=== PATIENT | male | born 1970 | race Caucasian/White ===

== ENCOUNTER 2016-08-13 23:32 | Emergency (ER) | payer BC ==
[2016-08-13] MEDS ORDERED: Aspirin Low Dose CHEW TAB* 81 MG PO ONE (23:42)
[2016-08-14] MEDS ORDERED: NS 0.9% 1000 ML* 1,000 ML IV ONE (00:47)
[2016-08-14] MEDS ORDERED: Ondansetron INJ* 2 MG/ML VIAL IV ONE (00:47)
[2016-08-14] MEDS ORDERED: Ketorolac INJ* 30 MG/ML 1 ML VIAL IV ONE (00:47)
[2016-08-14 00:55] LABS: Urine Bilirubin Negative (Negative); Urine Glucose Negative (Negative); Urine Nitrite Negative (Negative)
[2016-08-14 00:57] LABS: Albumin 4.8 g/dL (3.2-5.2); BUN/Creatinine Ratio 16.8 (8-20); Calcium 9.5 mg/dL (8.6-10.3); EGFR Non-African American 66.1 (>60); Potassium 3.4 mmol/L (3.5-5.0); Total Bilirubin 0.7 mg/dL (0.2-1.0); Total Protein 7.8 g/dL (6.4-8.9)
[2016-08-14 01:05] LABS: Hematocrit 46 % (42-52); Hemoglobin 15.4 g/dl (14.0-18.0); Mean Corpuscular HGB Conc 34 g/dl (31-36); Mean Corpuscular Hemoglobin 31 pg (27-31); Mean Corpuscular Volume 91 fL (80-94); Mean Platelet Volume 8 um3 (7.4-10.4); Red Blood Count 5.05 10^6/ul (4.0-5.4); Red Cell Distribution Width 13 % (10.5-15); White Blood Count 6.7 10^3/ul (3.5-10.8)
--- NOTE | 2016-08-14 02:44 | ED ---
Sabine Brock Claudia, scribed for Aby Hernandez MD on 08/14/16 at 0052 . Complex/Multi-Sys Presentation - HPI Summary HPI Summary: 46 year old male presents to the ED with multi-Sx. Pt notes that for the past week he has been having urinary Sx including an increase in frequency with the inability to urinate. Pt saw his PCP Dr. Shane last Wednesday and was given Rx for Ciproflaxin with the thought that thue pt has a UTI. Pt then went back 1 week later with no alleviation in Sx and has taken 2 dosages of Bactrum from Dr. Shane. Pt then notes that tonight he had a heaviness in his chest which worsened from 8:30-pm to 10pm when he decided to come to ED. He notes SOB during this episode of CP. He notes that the CP has somewhat been alleviated since arriving at the ED. Pt notes that he has been having left flank pain radiating to his left testicle since the urinary Sx began. He notes that deep berths aggravated his CP. FHx of Kidney Stones. - History Of Current Complaint Chief Complaint: EDChestPainROMI Time Seen by Provider: 08/13/16 23:42 Hx Obtained From: Patient Onset/Duration: Sudden Onset, Lasting Days, Still Present Timing: Constant Associated Signs And Symptoms: Positive: Back Pain - flank pain, Dysuria - with increased frequency - Allergies/Home Medications Allergies/Adverse Reactions: Allergies Allergy/AdvReac Type Severity Reaction Status Date / Time No Known Allergies Allergy Verified 08/13/16 23:49 Home Medications: Home Medications Sulfamethox/Trimethoprim DS* [Bactrim DS 800/160 TAB*] 1 tab PO BID 08/13/16 [ History Confirmed 08/13/16] PMH/Surg Hx/FS Hx/Imm Hx Previously Healthy: Yes Endocrine/Hematology History: Denies: Hx Diabetes, Hx Thyroid Disease Cardiovascular History: Denies: Hx Angina, Hx Coronary Artery Disease, Hx Hypercholesterolemia, Hx Hypertension, Hx Myocardial Infarction, Hx Valvular Heart Disease Respiratory History: Reports: Hx Sleep Apnea, Other Respiratory Problems/ Disorders - SLEEP APNEA Denies: Hx Asthma, Hx Chronic Obstructive Pulmonary Disease (COPD) GI History: Reports: Hx Gastroesophageal Reflux Disease Denies: Hx Ulcer, Other GI Disorders Musculoskeletal History: Reports: Hx Back Problems Neurological History: Denies: Other Neuro Impairments/Disorders - Surgical History Surgery Procedure, Year, and Place: appe at age 8; wisdom teeth Hx Anesthesia Reactions: No - Immunization History Date of Tetanus Vaccine: unk Date of Influenza Vaccine: unk Infectious Disease History: No Infectious Disease History: Denies: Hx Clostridium Difficile, Hx Hepatitis, Hx Human Immunodeficiency Virus (HIV), Hx of Known/Suspected MRSA, Hx Shingles, Hx Tuberculosis, Hx Known/ Suspected VRE, Hx Known/Suspected VRSA, History Other Infectious Disease, Traveled Outside the [place] in Last 30 Days - Family History Family History: Kindpar[place] Stones - Social History Occupation: Employed Full-time Lives: With Family Alcohol Use: Daily Alcohol Amount: 2 beers/night Substance Use Type: Reports: None Hx Tobacco Use: Yes Smoking Status (MU): Former Smoker Type: Cigarettes Have You Smoked in the Last Year: No Review of Systems Constitutional: Negative Eyes: Negative ENT: Negative Positive: Chest Pain Positive: Shortness Of Breath Gastrointestinal: Negative Negative: Abdominal Pain Positive: dysuria, frequency, flank pain, urgency Musculoskeletal: Negative Skin: Negative Neurological: Negative Psychological: Normal All Other Systems Reviewed And Are Negative: Yes Physical Exam Triage Information Reviewed: Yes Vital Signs On Initial Exam: Initial Vitals Temp Pulse Resp BP Pulse Ox 98.2 F 94 20 157/76 100 08/13/16 23:34 08/13/16 23:34 08/13/16 23:34 08/13/16 23:34 08/13/16 23:34 Vital Signs Reviewed: Yes Appearance: Positive: Well-Appearing, No Pain Distress Skin: Positive: Warm, Skin Color Reflects Adequate Perfusion, Dry Eyes: Positive: EOMI, LALY Neck: Positive: Supple, Nontender Respiratory/Lung Sounds: Positive: Clear to Auscultation, Breath Sounds Present. Negative: Rales, Rhonchi, Wheezes Cardiovascular: Positive: RRR. Negative: Murmur, Leg Edema Left, Leg Edema Right Abdomen Description: Positive: Nontender, Soft, Other: - mild left flank pain. Negative: Distended, Guarding Musculoskeletal: Positive: Strength/ROM Intact Neurological: Positive: Sensory/Motor Intact, Alert, Oriented to Person Place, Time, CN Intact II-III Psychiatric: Positive: Affect/Mood Appropriate - William Coma Scale Coma Scale Total: 15 Diagnostics - Vital Signs Vital Signs Temp Pulse Resp BP Pulse Ox 08/14/16 00:15 80 13 133/97 98 08/14/16 00:01 86 17 133/85 97 08/14/16 00:00 82 11 97 08/13/16 23:53 20 08/13/16 23:52 146/86 08/13/16 23:45 99.2 F 86 14 146/86 99 08/13/16 23:34 98.2 F 94 20 157/76 100 - Laboratory Lab Results: Lab Results 08/14/16 08/14/16 08/14/16 Range/Units 00:10 00:10 00:10 WBC 6.7 (3.5-10.8) 10^3/ul RBC 5.05 (4.0-5.4) 10^6/ul Hgb 15.4 (14.0-18.0) g/dl Hct 46 (42-52) % MCV 91 (80-94) fL MCH 31 (27-31) pg MCHC 34 (31-36) g/dl RDW 13 (10.5-15) % Plt Count 212 (150-450) 10^3/ul MPV 8 (7.4-10.4) um3 Neut % (Auto) 72.7 (38-83) % Lymph % (Auto) 13.7 L (25-47) % [place] % (Auto) 9.6 H (1-9) % Eos % (Auto) 3.2 (0-6) % Baso % (Auto) 0.8 (0-2) % Absolute Neuts (auto) 4.9 (1.5-7.7) 10^3/ul Absolute Lymphs (auto) 0.9 L (1.0-4.8) 10^3/ul Absolute Monos (auto) 0.6 (0-0.8) 10^3/ul Absolute Eos (auto) 0.2 (0-0.6) 10^3/ul Absolute Basos (auto) 0.1 (0-0.2) 10^3/ul Absolute Nucleated RBC 0.01 10^3/ul Nucleated RBC % 0.1 Sodium 135 (133-145) mmol/L Potassium 3.4 L (3.5-5.0) mmol/L Chloride 102 (101-111) mmol/L Carbon Dioxide 22 (22-32) mmol/L Anion Gap 11 (2-11) mmol/L BUN 20 (6-24) mg/dL Creatinine 1.19 H (0.67-1.17) mg/dL Est GFR ( Amer) 85.0 (>60) Est GFR (Non-Af Amer) 66.1 (>60) BUN/Creatinine Ratio 16.8 (8-20) Glucose 88 (70-100) mg/dL Lactic Acid 1.0 (0.5-2.0) mmol/L Calcium 9.5 (8.6-10.3) mg/dL Total Bilirubin 0.70 (0.2-1.0) mg/dL AST 29 (13-39) U/L ALT 34 (7-52) U/L Alkaline Phosphatase 62 (34-104) U/L Troponin I 0.00 (<0.04) ng/mL Total Protein 7.8 (6.4-8.9) g/dL Albumin 4.8 (3.2-5.2) g/dL Globulin 3.0 (2-4) g/dL Albumin/Globulin Ratio 1.6 (1-3) Urine Color Urine Appearance Urine pH (5-9) Ur Specific [place] (1.010-1.030) Urine Protein (Negative) Urine Ketones (Negative) Urine Blood (Negative) Urine Nitrate (Negative) Urine Bilirubin (Negative) Urine Urobilinogen (Negative) Ur Leukocyte Esterase (Negative) Urine Glucose (Negative) 08/14/16 Range/Units 00:10 WBC (3.5-10.8) 10^3/ul RBC (4.0-5.4) 10^6/ul Hgb (14.0-18.0) g/dl Hct (42-52) % MCV (80-94) fL MCH (27-31) pg MCHC (31-36) g/dl RDW (10.5-15) % Plt Count (150-450) 10^3/ul MPV (7.4-10.4) um3 Neut % (Auto) (38-83) % Lymph % (Auto) (25-47) % [place] % (Auto) (1-9) % Eos % (Auto) (0-6) % Baso % (Auto) (0-2) % Absolute Neuts (auto) (1.5-7.7) 10^3/ul Absolute Lymphs (auto) (1.0-4.8) 10^3/ul Absolute Monos (auto) (0-0.8) 10^3/ul Absolute Eos (auto) (0-0.6) 10^3/ul Absolute Basos (auto) (0-0.2) 10^3/ul Absolute Nucleated RBC 10^3/ul Nucleated RBC % Sodium (133-145) mmol/L Potassium (3.5-5.0) mmol/L Chloride (101-111) mmol/L Carbon Dioxide (22-32) mmol/L Anion Gap (2-11) mmol/L BUN (6-24) mg/dL Creatinine (0.67-1.17) mg/dL Est GFR ( Amer) (>60) Est GFR (Non-Af Amer) (>60) BUN/Creatinine Ratio (8-20) Glucose (70-100) mg/dL Lactic Acid (0.5-2.0) mmol/L Calcium (8.6-10.3) mg/dL Total Bilirubin (0.2-1.0) mg/dL AST (13-39) U/L ALT (7-52) U/L Alkaline Phosphatase (34-104) U/L Troponin I (<0.04) ng/mL Total Protein (6.4-8.9) g/dL Albumin (3.2-5.2) g/dL Globulin (2-4) g/dL Albumin/Globulin Ratio (1-3) Urine Color Straw Urine Appearance Clear Urine pH 5.0 (5-9) Ur Specific [place] 1.011 (1.010-1.030) Urine Protein Negative (Negative) Urine Ketones 1+ H (Negative) Urine Blood Negative (Negative) Urine Nitrate Negative (Negative) Urine Bilirubin Negative (Negative) Urine Urobilinogen Negative (Negative) Ur Leukocyte Esterase Negative (Negative) Urine Glucose Negative (Negative) Result Diagrams: 08/14/16 00:10 08/14/16 00:10 Lab Statement: Any lab studies that have been ordered have been reviewed, and results considered in the medical decision making process. - Radiology CXR Xray Interpretation: No Acute Changes Radiology Interpretation Completed By: ED Physician - CT ABD/PELVIS CT Interpretation: No Acute Changes - NO LOCALIZING SIGNS FOR ACUTE PATHOLOGY CT Interpretation Completed By: Radiologist LUMBAR SPINE CT CT Interpretation: No Acute Changes - NO EVIDENCE OF ACUTE OR SIGNIFICANT PATHOLOGY CT Interpretation Completed By: Radiologist - EKG 2344 Cardiac Rate: NL EKG Rhythm: Sinus Rhythm - 77 BEATS/MIN ST Segment: Normal Complex Multi-Symp Course/Dx Course Of Treatment: 46 yo male with multiple complaints, he is seeing urology today for a presumed prostatititis and here has a normal urine, normal wbc and a neg ct for stones. ct lumbar spine does not show anything alarming, he does not have any signs of cauda equina. As for cp his first trop is negative, he understands that in order to fully determine that he has not had a heart attack a troponin would have to be drawn 6 hours after his worst pain (1030pm) and this would be at 430 am. He is willing to take the risk of a missed heart attack and but has agreed to getting a troponin now which is 3 hours from the first. If this is negative he will go home. no testicular swelling, normal dtr's normal great toe raise - Diagnoses Provider Diagnoses: Chest pain, Prostatitis Discharge - Discharge Plan Condition: Stable Disposition: HOME The documentation as recorded by the Sabine knowles Claudia accurately reflects the service I personally performed and the decisions made by me, Aby Hernandez MD.
[2016-08-14 03:16] VITALS: BP 128/83
--- NOTE | 2016-08-14 07:59 | RAD ---
INDICATION: Chest pain COMPARISON: Chest x-ray dated January 05, 2013 TECHNIQUE: Single AP portable view of the chest was obtained. FINDINGS: Image quality is compromised due to the relative inferiority of a portable chest x-ray. The heart and mediastinum exhibit normal size and contour. The lungs are grossly clear. There is no evidence of a large pleural effusion. Visualized bones are normal for the patient's age. IMPRESSION: No radiographic evidence for acute cardiopulmonary abnormality on this portable chest x-ray.
--- NOTE | 2016-08-14 08:09 | RAD ---
CLINICAL HISTORY: Low back and left flank pain. Relevant surgical history includes an appendectomy. COMPARISON: None TECHNIQUE: Noncontrast CT examination of the abdomen and pelvis from the lung bases through the initial tuberosities. FINDINGS: VISUALIZED LUNG BASES: The visualized lung bases are grossly clear. There is no pleural effusion. ABDOMEN AND PELVIS: Evaluation of the solid organs and vasculature is limited without intravenous contrast. The liver, spleen, pancreas and adrenal glands are grossly normal in appearance. The gallbladder is normal. The kidneys are normal in appearance without focal mass, calcification or signs of hydronephrosis. The small and large bowel are not distended. The appendix is not visualized in keeping with the surgical history. There are scattered rectosigmoid diverticula but none exhibit focal inflammatory change. There is no gross retroperitoneal or mesenteric lymphadenopathy. The pelvic viscera is normal in appearance. There is a small fat-containing left-sided inguinal hernia. The abdominal aorta and iliac arteries are normal in course and diameter. Degenerative changes of the lumbar spine include mild loss of intervertebral disc height involving the lower thoracic and lumbar spine. There are anterior marginal osteophytes along the lower thoracic spine. Mild broad-based disc protrusion is seen at the lower lumbar spine that does not appear to cause any significant central canal or neural foraminal stenoses.There are no sinister bone lesions. IMPRESSION: 1. Mild degenerative changes of the lower thoracic and lumbar spine as well as can be determined and evaluated on a noncontrast CT examination. If clinically warranted superior characterization of the neurologic and surrounding soft tissues of the lumbar spine can be made with MRI. 2. Additional chronic and degenerative changes as described in body the report.
== END 2016-08-14 03:24 | disposition home or self-care (01) ==
LOC: ED 23:32
DX: R07.9 Chest pain, unspecified (principal); N41.9 Inflammatory disease of prostate, unspecified; M54.9 Dorsalgia, unspecified; R30.0 Dysuria
CPT/HCPCS: 36415; 71010; 72131; 74176; 80053; 81003; 83605; 84484; 85025; 93005; 96374; 99283; A9270-GY; J1885; J2405

== ENCOUNTER 2017-03-12 20:56 | Emergency (ER) | payer BC ==
--- NOTE | 2017-03-12 21:02 | UC ---
Throat Pain/Nasal Ben HPI - HPI Summary HPI Summary: Pt ate a ham and cheese sandwich at about 1800 tonight. When swallowing a bite, he felt a "pop" in the anterior aspect of his throat and has had significant pain with swallowing since. He is able to tolerate liquids, but with pain. He also reports that he feels his swallowing has been getting more difficult over the course of this week. Denies SOB, food allergies, recent illness, or sore throat before tonight. - History of Current Complaint Chief Complaint: UCGeneralIllness Stated Complaint: THROAT COMPLAINT Time Seen by Provider: 03/12/17 21:02 Hx Obtained From: Patient Onset/Duration: Sudden Onset Severity: Severe Pain Intensity: 8 Pain Scale Used: 0-10 Numeric Associated Signs & Symptoms: Positive: Dysphagia, FB Sensation - Allergies/Home Medications Allergies/Adverse Reactions: Allergies Allergy/AdvReac Type Severity Reaction Status Date / Time No Known Allergies Allergy Verified 03/12/17 20:58 Home Medications: Home Medications NK [No Home Medications Reported] 03/12/17 [History Confirmed 03/12/17] PMH/Surg Hx/FS Hx/Imm Hx Previously Healthy: Yes - Surgical History Surgical History: Yes Surgery Procedure, Year, and Place: appe at age 8; wisdom teeth - Family History Family History: Kindey Stones - Social History Alcohol Use: Daily Alcohol Amount: 2 beers/night Substance Use Type: None Smoking Status (MU): Former Smoker Type: Cigarettes Have You Smoked in the Last Year: No When Did the Patient Quit Smoking/Using Tobacco: 2010 - Immunization History Most Recent Influenza Vaccination: never Most Recent Tetanus Shot: 2007 Review of Systems Constitutional: Negative Skin: Negative ENT: Ear Ache, Other - Throat pain Respiratory: Negative Cardiovascular: Negative Gastrointestinal: Negative Is Patient Immunocompromised?: No All Other Systems Reviewed And Are Negative: Yes Physical Exam Triage Information Reviewed: Yes Appearance: Other: - Appears anxious. NAD. Vital Signs Reviewed: Yes ENT: Positive: Hearing grossly normal, Pharyngeal erythema, TMs normal. Negative: Nasal congestion, Nasal drainage, TM bulging, TM dull, TM red, Tonsillar swelling, Tonsillar exudate, Trismus, Muffled/hoarse voice Neck exam: Normal Neck: Positive: Supple, No Lymphadenopathy, Tenderness @ - anterior aspect just superior to cricoid Respiratory: Positive: Chest non-tender, Lungs clear, Normal breath sounds, No respiratory distress Cardiovascular: Positive: RRR, No Murmur Neurological: Positive: Alert Psychological: Positive: Age Appropriate Behavior, Other: - Anxious Skin: Negative: rashes, significant lesion(s) Throat Pain/Nasal Course/Dx - Course Course Of Treatment: Pt was presented to Dr. Maya and a ddx and potential tx options were discussed. Could possibly have a FB situated about the epiglottis requiring advanced imaging or an endoscopic procedure. Advised to send to ED for further eval Assessment/Plan: Pt was presented to Dr. Maya and a ddx and potential tx options were discussed. Could possibly have a FB situated about the epiglottis requiring advanced imaging or an endoscopic procedure. Advised to send to ED for further eval - Differential Dx/Diagnosis Differential Diagnosis/HQI/PQRI: Epiglottitis, Foreign Body, Pharyngitis, Tonsillitis Provider Diagnoses: Foreign Body in laryngopharynx - Physician Notification/Consults Discussed Patient Care With: Cr Maya Time Discussed With Above Provider: 21:30 Discharge - Discharge Plan Condition: Stable Disposition: OTHER Discharge Disposition Comment: By private car to [facility] Referrals: Cornell Belcher MD [Primary Care Provider] - Additional Instructions: Possible foreign body stuck in airway/esophagus. If you develop SOB, trouble breathing, or worsening pain - call 911.
[2017-03-12 21:04] VITALS: BP 158/94
== END 2017-03-12 21:25 ==
LOC: UCEAST 20:56
DX: T17.208A Unspecified foreign body in pharynx causing other injury, initial encounter (principal); X58.XXXA Exposure to other specified factors, initial encounter; Y93.9 Activity, unspecified; Y92.9 Unspecified place or not applicable; Z87.891 Personal history of nicotine dependence
CPT/HCPCS: 99211; G0463

== ENCOUNTER 2017-03-12 21:45 | Emergency (ER) | payer BC ==
[2017-03-12 23:22] VITALS: BP 139/75
[2017-03-13] MEDS ORDERED: Lidocaine 2% VISCOUS* 15 ML UDC SWISH SPIT ONE (00:40)
[2017-03-13] MEDS ORDERED: Pantoprazole TAB (NF) 40 MG TAB PO ONE (00:40)
--- NOTE | 2017-03-13 01:45 | ED ---
Ab Brock Abhishek, scribed for Curtis Umana on 03/13/17 at 0040 . Throat Pain/Nasal Congestion - HPI Summary HPI Summary: This patient is a 46 year old M presenting to [facility] with a chief complaint of throat pain today. Pt was eating food and heard a snap, like a rubber band snap in his throat. The CC is described as sudden. The patient rates the pain 2/10 in severity. Symptoms aggravated by sneezing. Symptoms alleviated by nothing. - History of Current Complaint Chief Complaint: EDThroatPain Time Seen by Provider: 03/13/17 00:30 Hx Obtained From: Patient Onset/Duration: Sudden Onset Severity: Mild - Allergies/Home Medications Allergies/Adverse Reactions: Allergies Allergy/AdvReac Type Severity Reaction Status Date / Time No Known Allergies Allergy Verified 03/12/17 20:58 PMH/Surg Hx/FS Hx/Imm Hx Endocrine/Hematology History: Denies: Hx Diabetes, Hx Thyroid Disease Cardiovascular History: Denies: Hx Angina, Hx Coronary Artery Disease, Hx Hypercholesterolemia, Hx Hypertension, Hx Myocardial Infarction, Hx Valvular Heart Disease Respiratory History: Reports: Hx Sleep Apnea, Other Respiratory Problems/ Disorders - SLEEP APNEA Denies: Hx Asthma, Hx Chronic Obstructive Pulmonary Disease (COPD) GI History: Reports: Hx Gastroesophageal Reflux Disease Denies: Hx Ulcer, Other GI Disorders Musculoskeletal History: Reports: Hx Back Problems, Other Musculoskeletal History - Myalgia Neurological History: Denies: Other Neuro Impairments/Disorders - Surgical History Surgery Procedure, Year, and Place: appe at age 8; wisdom teeth Hx Anesthesia Reactions: No - Immunization History Date of Tetanus Vaccine: unk Date of Influenza Vaccine: unk Infectious Disease History: No Infectious Disease History: Denies: Hx Clostridium Difficile, Hx Hepatitis, Hx Human Immunodeficiency Virus (HIV), Hx of Known/Suspected MRSA, Hx Shingles, Hx Tuberculosis, Hx Known/ Suspected VRE, Hx Known/Suspected VRSA, History Other Infectious Disease, Traveled Outside the [place] in Last 30 Days - Family History Known Family History: Positive: None Family History: Kindey Stones - Social History Occupation: Employed Full-time Alcohol Use: Daily Alcohol Amount: 2 beers/night Substance Use Type: Reports: None Hx Tobacco Use: Yes Smoking Status (MU): Former Smoker Type: Cigarettes Have You Smoked in the Last Year: No Review of Systems Constitutional: Negative Eyes: Negative Positive: Ear Ache, Other - throat pain s/p eating food and dysphagia Cardiovascular: Negative Respiratory: Negative Gastrointestinal: Negative Genitourinary: Negative Musculoskeletal: Negative Skin: Negative Neurological: Negative Psychological: Normal All Other Systems Reviewed And Are Negative: Yes Physical Exam - Summary Physical Exam Summary: Appearance: Well appearing, no pain distress Skin: warm, dry, reflects adequate perfusion Head/face: normal Eyes: EOMI, LALY ENT: normal Neck: supple, nontender Respiratory: CTA, breath sounds present Cardiovascular: RRR, pulses symmetrical Abdomen: nontender, soft Bowel: present Musculoskeletal: normal, strength/ROM intact Neuro: normal, sensory motor intact, A&Ox3 Triage Information Reviewed: Yes Vital Signs On Initial Exam: Initial Vitals Temp Pulse Resp BP Pulse Ox 97.8 F 77 14 156/90 97 03/12/17 21:55 03/12/17 21:55 03/12/17 21:55 03/12/17 21:55 03/12/17 21:55 Vital Signs Reviewed: Yes - William Coma Scale Coma Scale Total: 15 Diagnostics - Vital Signs Vital Signs Temp Pulse Resp BP Pulse Ox 03/12/17 23:21 97.9 F 67 14 139/75 97 03/12/17 21:55 97.8 F 77 14 156/90 97 - Laboratory Lab Statement: Any lab studies that have been ordered have been reviewed, and results considered in the medical decision making process. - Radiology Chest X-ray Radiology Interpretation Completed By: Radiologist - Chest X-ray is negative EENT Course/Dx - Course Course Of Treatment: This patient is a 46 year old M presenting to [facility] with a chief complaint of throat pain today. Patient reports troubling swallowing food for a few days, and ear pain. CXR is negative. Pt is dx with Throat pain with foreign body ingestion and is with no dysphagia, Pt is able to drink water. Patient will be (discharged) with follow up from PCP. Pt is agreeable with this plan. - Differential Diagnoses Differential Diagnoses: Foreign Body - Diagnoses Provider Diagnoses: Throat pain Discharge - Discharge Plan Condition: Stable Disposition: HOME Prescriptions: Lidocaine 2% VISCOUS* [Xylocaine 2% Viscous*] 15 ml SWISH SPIT Q6H PRN #1 btl MDD 3 PRN Reason: Pain Pantoprazole TAB (NF) [Protonix TAB (NF)] 40 mg PO DAILY #30 tab Patient Education Materials: Foreign Body Ingestion (ED) Referrals: Cornell Belcher MD [Primary Care Provider] - (Follow up with PCP within 3 days) Additional Instructions: No dysphagia The documentation as recorded by the Ab knowles Abhishek accurately reflects the service I personally performed and the decisions made by Lyndsay lucas Emmanuel.
--- NOTE | 2017-03-13 07:54 | RAD ---
HISTORY: Throat pain COMPARISONS: August 13, 2016 VIEWS: 4: Frontal dual-energy and lateral views of the chest. FINDINGS: CARDIOMEDIASTINAL SILHOUETTE: The cardiomediastinal silhouette is normal. NAMRATA: The namrata are normal. PLEURA: The costophrenic angles are sharp. No pleural abnormalities are noted. LUNG PARENCHYMA: The lungs are clear. ABDOMEN: The upper abdomen is clear. There is no subphrenic gas. BONES AND SOFT TISSUES: No bone or soft tissue abnormalities are noted. OTHER: None. IMPRESSION: NO ACTIVE CARDIOPULMONARY DISEASE.
== END 2017-03-13 01:33 | disposition home or self-care (01) ==
LOC: ED 21:45
DX: J02.9 Acute pharyngitis, unspecified (principal); H92.09 Otalgia, unspecified ear; R13.10 Dysphagia, unspecified; Z87.891 Personal history of nicotine dependence
CPT/HCPCS: 71020; 99282; A9270-GY

== ENCOUNTER 2017-04-17 09:41 | Emergency (ER) | payer BC ==
--- NOTE | 2017-04-17 09:54 | UC ---
Eye Complaint HPI - HPI Summary HPI Summary: 46 y/o female presents to the urgent care c/o Rt eye foreign body since 04/15/2017 while watching TV. He flushed his eye with water and his eye clear. However yesterday night he felt the same irritation and now it is bothering him a lot. Symptoms have worsen since last night.Pt denies, fever, photophobia, eye pain, decrease vision, eye discharge, MILIAN, N/V/D - History of Current Complaint Chief Complaint: UCEye Stated Complaint: EYE COMPLAINT Time Seen by Provider: 04/17/17 09:53 Hx Obtained From: Patient Onset/Duration: Gradual Onset, Lasting Days - 2 days, Still Present, Worse Since - yesterday Timing: Constant Severity Initially: Mild Severity Currently: Mild Pain Intensity: 0 Pain Scale Used: 0-10 Numeric Location of Injury: Globe - foreign body sensation Character: Foreign Body Sensation Aggravating Factor(s): Blinking Alleviating Factor(s): Nothing Associated Signs And Symptoms: Positive: Drainage (Clear). Negative: Photophobia, Drainage (Purulent), Swelling - Risk Factors Penetrating Injury Risk Factor: Negative Globe Rupture Risk Factors: Negative Acute Glaucoma Risk Factors: Negative Optic Artery Occlusion Risk Factors: Negative - Allergies/Home Medications Allergies/Adverse Reactions: Allergies Allergy/AdvReac Type Severity Reaction Status Date / Time No Known Allergies Allergy Verified 04/17/17 09:58 Home Medications: Home Medications Omeprazole CAP* [Prilosec CAP* 20 MG] 1 cap PO DAILY 04/17/17 [History Confirmed 04/17/17] PMH/Surg Hx/FS Hx/Imm Hx Previously Healthy: Yes - Pt denies PMHX - Surgical History Surgical History: Yes Surgery Procedure, Year, and Place: appe at age 8; wisdom teeth - Family History Known Family History: Positive: Diabetes Family History: Kindey Stones - Social History Occupation: Employed Full-time Lives: With Family Alcohol Use: Daily Alcohol Amount: 2 beers/night Substance Use Type: None Smoking Status (MU): Former Smoker Type: Cigarettes Have You Smoked in the Last Year: No When Did the Patient Quit Smoking/Using Tobacco: 2010 - Immunization History Most Recent Influenza Vaccination: never Most Recent Tetanus Shot: 2007 Review of Systems Constitutional: Negative Skin: Negative Eyes: Other - RT eye foreign body ENT: Negative Respiratory: Negative Cardiovascular: Negative Gastrointestinal: Negative Genitourinary: Negative Motor: Negative Neurovascular: Negative Musculoskeletal: Negative Neurological: Negative Psychological: Negative Is Patient Immunocompromised?: No All Other Systems Reviewed And Are Negative: Yes Physical Exam Triage Information Reviewed: Yes - Additional Comments Vital Signs Reviewed: Yes General: Well appearing, well nourished male in no apparent pain distress Eyes: B/L conjunctivae clears, Visual acuity: WNL,Visual [place]: full to confrontation, no tenderness to palpation, PERRLA, EOMI intact w/out limitation or complaint of pain. eyelashes clear. mild tearing from Rt eye. No ciliary flush. No chemosis, No photophobia. Normal fundoscopic exam; no proptosis, exophthalmos, nystagmus. Trnasparent fiber around 11 o'clock observed with naked eye, However unable to removed with Q-tip since Pt's unable to open eye for removal. ENT: Positive: Normal ENT inspection, Hearing grossly normal, Pharynx normal, Nasal congestion, Nasal drainage - clear, TMs normal - B/L external ear canal clear , TM's WNL. Negative: Tonsillar swelling, Tonsillar exudate Neck: Positive: Supple, Nontender, No Lymphadenopathy Respiratory: Positive: Chest nontender, Lungs clear, Normal breath sounds, No respiratory distress Cardiovascular: Positive: RRR, No Murmur, Pulses Normal, Brisk Capillary Refill Abdomen Description: Positive: Nontender, No Organomegaly, Soft. Negative: CVA Tenderness (R), CVA Tenderness (L) Bowel Sounds: Positive: Present Musculoskeletal: Positive: Strength Intact, ROM Intact, No Edema Neurological Exam: Normal Psychological Exam: Normal Skin Exam: Normal Eye Complaint Course/Dx - Course Course Of Treatment: 46 y/o female presents to the urgent care c/o Rt eye foreign body since 04/15/2017 while watching TV. He flushed his eye with water and his eye clear. However yesterday night he felt the same irritation and now it is bothering him a lot. Symptoms have worsen since last night.Pt denies fever, photophobia, eye pain, decrease vision, eye discharge, MILIAN , N/V/D. Hx obtained. Pt with a transparent fiber on examination. Unable to remove FB with Q-tip. Pt very sensitive. Eye irrigated wtih BSS opthalmic. Topical anesthetic was instilled with good anesthesia using 1 gtt of ophth anesthetic Tetracaine. Fluorescein stain of the R eye was performed w/ uptake of dye. No epithelial defect was noted, no corneal abrassion seen. FB removed. Upper lid was everted and no FB or lesions were noted. Slit lamp exam was performed. Anterior chamber is clear w/out cells or flare. Normal saline irrigation again and eye wash solutions was performed and the pt tolerated the procedure well, no adverse reaction or complication. Pt felt better. BP elevated Today, Pt advised to decrease salt in his diet,monitor BP and f/u with PCP if it continues to be elevated. Pt Rx Bacitacin opth oint to lubricate eye. D/instruction explained. pt understood and agreed with plan of care. - Differential Dx/Diagnosis Differential Diagnosis/HQI/PQRI: Conjunctivitis, Corneal Abrasion, Foreign Body , Keratitis, Periorbital Cellulitis, Orbital Cellulitis, Uveitis Provider Diagnoses: 1- RT eye foreing body. 2- elevated BP w/o Hx of HTN Discharge - Discharge Plan Condition: Stable Disposition: HOME Patient Education Materials: Eye Foreign Body (ED), Low Sodium Diet (ED) Referrals: Cornell Belcher MD [Primary Care Provider] - 1 Day Yonas Dillard MD [Medical Doctor] - If Needed Additional Instructions: 1-Please apply ophthalmic ointment as instructed and finish the full course of treatment to avoid recurrent infection. 2-If you do not improve or if symptoms worsen please f/u with strike operations officer Dr Dillard for further evaluation and treatment 3- Your BP is elevated today, please decrease salt in your diet, monitor your BP and if it continues to be elevated please f/u with your PCP for further management
[2017-04-17 09:58] VITALS: BP 149/80
[2017-04-17] MEDS ORDERED: Tetracaine 0.5% OPTH.SOL 4 ML* 1 DROP BTL RIGHT EYE ONE (10:12)
[2017-04-17] MEDS ORDERED: Fluorescein Sodium TOPICAL* 1 MG TEST OPHTHALMIC ONE (10:13)
[2017-04-17] MEDS ORDERED: BSS OPTH.SOL* BTL ONE (10:21)
[2017-04-17] MEDS ORDERED: BSS OPTH.SOL* BTL OPHTHALMIC ONE (10:42)
== END 2017-04-17 10:54 | disposition home or self-care (01) ==
LOC: UCEAST 09:41
DX: T15.91XA Foreign body on external eye, part unspecified, right eye, initial encounter (principal); S00.251A Superficial foreign body of right eyelid and periocular area, initial encounter; Z87.891 Personal history of nicotine dependence
CPT/HCPCS: 99213; A9270-GY; G0463

== ENCOUNTER 2019-03-11 11:25 | Emergency (ER) | payer BC ==
--- OUTSIDE RECORDS SUMMARY | 2019-03-11 11:38 | XMS REPORT | Continuity of Care Document ---
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 Problems Active Problems Provider Date Esophageal web Alesia Romano NP Onset: 02/28/2019 Note: faint web on EGD, no dilation done 09/23/2017 Gastro-esophageal reflux disease with esophagitis Alesia Romano NP Onset: Social History Type Date Description Comments Sex Unknown Tobacco Use Start: Unknown End: Former Cigarette Unknown Smoker Smoking Status Reviewed: 02/28/19 Former Cigarette Smoker ETOH Use Currently consumes 2 beers per day alcohol Tobacco Use Start: Unknown End: Patient is a former Unknown smoker Recreational Drug Use Denies Drug Use Exercise Type/Frequency 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 Allergies, Adverse Reactions, Alerts Description No Known Drug Allergies Medications Active Medications SIG Qnty Indications Ordering Provider Date Dexilant 1 by mouth 30caps Alesia Romano NP 02/28/[address] every day Sudafed Decongestant Alesia Romano NP 02/28/2019 History Medications No Active Medications Unknown 02/28/2019 - 02/28/2019 Immunizations Description No Information Available Vital Signs Date Vital Result Comment 02/28/2019 3:05pm Height 67.75 inches 5'7.75" Weight 196.00 lb Heart Rate 86 /min BP Systolic 149 mmHg BP Diastolic 84 mmHg O2 % BldC Oximetry 97 % BMI (Body Mass Index) 30.0 kg/m2 10/07/2016 1:35pm Height 67.75 inches 5'7.75" Weight 181.00 lb Heart Rate 68 /min BP Systolic 130 mmHg BP Diastolic 80 mmHg Respiratory Rate 20 /min Pain Level 1 BMI (Body Mass Index) 27.7 kg/m2 Results Description No Information Available Procedures Description No Information Available Medical Devices Description No Information Available Encounters Description No Information Available Assessments Date Code Description Provider 02/28/2019 K21.0 Gastro-esophageal reflux disease with esophagitis Alesia Romano NP 02/28/2019 H65.119 Acute and subacute allergic otitis media (mucoid) Alesia Romano NP (sanguinous) (serous), unspecified ear 02/28/2019 Q39.4 Esophageal web Alesia Romano NP Plan of Treatment 02/28/2019 - Alesia Romano NPK21.0 Gastro-esophageal reflux disease with esophagitisComments:Try the suggestions we talked about. [place] Pot for nasal irrigation.Let me know if the Dexilant works. Thank you for using [employer] [facility].H65.119 Acute and subacute allergic otitis media (serous), unsp earComments: Try the suggestions we talked about. [place] Pot for nasal irrigation.Let me know if the Dexilant works. Thank you for using [employer] [facility].Q39.4 Esophageal webComments:Try the suggestions we talked about. [place] Pot for nasal irrigation.Let me know if the Dexilant works. Thank you for using [employer] [facility]. Functional Status Description No Information Available Mental Status Description No Information Available Referrals Description No Information Available
[2019-03-11 12:26] VITALS: BP 148/91
--- NOTE | 2019-03-11 13:34 | UC ---
Throat Pain/Nasal Ben HPI - HPI Summary HPI Summary: Pt presents with c/o ST X 1 week and pain and difficulty with swallowing. Pt states that the pain is "lower in his throat" Pt does report that he has eaten fish with bones and has grilled recently and uses metal brush on grill. - History of Current Complaint Chief Complaint: UCRespiratory Stated Complaint: THROAT COMPLAINT Time Seen by Provider: 03/11/19 13:12 Hx Obtained From: Patient Onset/Duration: Gradual Onset, Lasting Days - 7, Still Present Severity: Mild Pain Intensity: 4 Cough: None Associated Signs & Symptoms: Positive: Dysphagia - Epiglottits Risk Factors Epiglottis Risk Factors: Sudden Onset - Allergies/Home Medications Allergies/Adverse Reactions: Allergies Allergy/AdvReac Type Severity Reaction Status Date / Time No Known Allergies Allergy Verified 03/11/19 12:16 Home Medications: Home Medications Dexlansoprazole [Dexilant] 1 tab DAILY 03/11/19 [History Confirmed 03/11/19] PMH/Surg Hx/FS Hx/Imm Hx Previously Healthy: Yes - Surgical History Surgical History: Yes Surgery Procedure, Year, and Place: appy at age 8; wisdom teeth - Family History Known Family History: Positive: Diabetes Family History: Kindey Stones - Social History Occupation: Employed Full-time Lives: With Family Alcohol Use: Daily Alcohol Amount: 2 beers/night Substance Use Type: None Smoking Status (MU): Former Smoker Type: Cigarettes Have You Smoked in the Last Year: No When Did the Patient Quit Smoking/Using Tobacco: 2010 - Immunization History Most Recent Influenza Vaccination: never Most Recent Tetanus Shot: utd w/in the last 4 years Vaccination Up to Date: Yes Review of Systems All Other Systems Reviewed And Are Negative: Yes Constitutional: Positive: Fatigue Skin: Positive: Negative Eyes: Positive: Negative ENT: Positive: Sore Throat Respiratory: Positive: Negative Cardiovascular: Positive: Negative Gastrointestinal: Positive: Negative Genitourinary: Positive: Negative Motor: Positive: Negative Neurovascular: Positive: Negative Musculoskeletal: Positive: Negative Neurological: Positive: Negative Psychological: Positive: Negative Is Patient Immunocompromised?: No Physical Exam Triage Information Reviewed: Yes Appearance: Pain Distress - with swallowing Vital Signs: Initial Vital Signs Temp 97.7 F 03/11/19 12:18 Pulse 67 03/11/19 12:18 Resp 16 03/11/19 12:18 BP 148/91 03/11/19 12:18 Pulse Ox 99 03/11/19 12:18 Vital Signs Reviewed: Yes Eye Exam: Normal ENT Exam: Normal ENT: Positive: Normal ENT inspection Dental Exam: Normal Neck exam: Normal Respiratory Exam: Normal Cardiovascular Exam: Normal Musculoskeletal Exam: Normal Neurological Exam: Normal Psychological Exam: Normal Skin Exam: Normal Diagnostics - Radiology No standard instances Radiology Interpretation Completed By: Radiologist - Strategic Development Manager: Ollie Warren F, ([id number]) Blast Furnace Supervisor: PATRICIA (NUANCE) Report Date: 12:09:00 Report Status: Final Start of Report Content = Patient Name: MARTA MELO Medical Record#: [id number] Ordering Physician: Liana Arango BILLING SERVICES MANAGER Acct.#: [id number] : 10/14/1992 Age: 26 Sex: M Location: [facility] Exam Date: 03/11/19 1209 ADM Status: REG ER Order Information: RIBS LT UNI W/PA CH MIN 3 VWS Accession Number: [id number] CPT: 76804 INDICATION: Left rib injury. COMPARISON: There are no relevant prior studies available for comparison. TECHNIQUE: 3 views of the left ribs and dual- energy PA views of the chest were obtained. FINDINGS: There are nondisplaced fractures of the left lateral eighth and ninth ribs. The heart is within normal limits in size. The lungs are clear. There is no evidence for pneumothorax or pleural effusion. IMPRESSION: NONDISPLACED FRACTURES OF THE LEFT LATERAL EIGHTH AND NINTH RIBS. < Electronically signed by Ollie Warren MD in OV> 03/11/191247 Dictated By: Ollie Warren MD Dictated Date/Time: 03/11/191244 Transcribed Date/Time: 1244 Copy to: CC:Liana Arango BILLING SERVICES MANAGER; Jane Hung MD; No Primary Care Phys,NOPCP Imaging - [facility] Imaging - [facility] Imaging - [facility] [address] [address] ph ([phone]) ph [phone]) ph ([phone]) End of Report Content Throat Pain/Nasal Course/Dx - Course Course Of Treatment: I discussed with the pt the need to follow up with his PCP and possibly an ENT provider due to patient c/o of persistent throat pain and difficulty swallowing. I discussed the results of the xray interpretation and reasoning why I prescribed antibiotics. Pt verbalized understanding and agreed to plan of care. - Differential Dx/Diagnosis Differential Diagnosis/HQI/PQRI: Pharyngitis, Tonsillitis Provider Diagnosis: Throat pain in adult Discharge ED - Sign-Out/Discharge Documenting (check all that apply): Patient Departure All imaging exams completed and their final reports reviewed: Yes - Discharge Plan Condition: Stable Disposition: HOME Prescriptions: Amoxicillin PO (*) [Amoxicillin 500 MG CAP*] 500 mg PO Q12H #20 cap Patient Education Materials: Pharyngitis (ED) Referrals: Kenyon Vazqeuz DO [Primary Care Provider] - If Needed Mode Baires MD [Medical Doctor] - If Needed Additional Instructions: Please follow up with your PCP and an ENT specialist if needed. If your symptoms do not improve or they worsen, please seek care at the closest emergency room. - Billing Disposition and Condition Condition: STABLE Disposition: Home
--- NOTE | 2019-03-16 11:01 | UC ---
Throat Pain/Nasal Ben HPI - HPI Summary HPI Summary: Pt presents with c/o ST X 1 week and pain and difficulty with swallowing. Pt states that the pain is "lower in his throat" Pt does report that he has eaten fish with bones and has grilled recently and uses metal brush on grill. - History of Current Complaint Chief Complaint: UCRespiratory Stated Complaint: THROAT COMPLAINT Time Seen by Provider: 03/11/19 13:12 Hx Obtained From: Patient Onset/Duration: Gradual Onset, Lasting Days - 7, Still Present Severity: Mild Pain Intensity: 4 Pain Scale Used: 0-10 Numeric Cough: None Associated Signs & Symptoms: Positive: Dysphagia - Epiglottits Risk Factors Epiglottis Risk Factors: Sudden Onset - Allergies/Home Medications Allergies/Adverse Reactions: Allergies Allergy/AdvReac Type Severity Reaction Status Date / Time No Known Allergies Allergy Verified 03/11/19 12:16 Home Medications: Home Medications Dexlansoprazole [Dexilant] 1 tab DAILY 03/11/19 [History Confirmed 03/11/19] PMH/Surg Hx/FS Hx/Imm Hx Previously Healthy: Yes - Surgical History Surgical History: Yes Surgery Procedure, Year, and Place: appy at age 8; wisdom teeth - Family History Known Family History: Positive: None, Diabetes Family History: Kindey Stones - Social History Occupation: Employed Full-time Lives: With Family Alcohol Use: Daily Alcohol Amount: 2 beers/night Substance Use Type: None Smoking Status (MU): Former Smoker Type: Cigarettes Have You Smoked in the Last Year: No When Did the Patient Quit Smoking/Using Tobacco: 2010 - Immunization History Most Recent Influenza Vaccination: never Most Recent Tetanus Shot: utd w/in the last 4 years Vaccination Up to Date: Yes Review of Systems All Other Systems Reviewed And Are Negative: Yes Constitutional: Positive: Fatigue Skin: Positive: Negative Eyes: Positive: Negative ENT: Positive: Sore Throat Respiratory: Positive: Negative Cardiovascular: Positive: Negative Gastrointestinal: Positive: Negative Genitourinary: Positive: Negative Motor: Positive: Negative Neurovascular: Positive: Negative Musculoskeletal: Positive: Negative Neurological: Positive: Negative Psychological: Positive: Negative Physical Exam Triage Information Reviewed: Yes Appearance: Pain Distress - with swallowing Vital Signs: Initial Vital Signs Temp 97.7 F 03/11/19 12:18 Pulse 67 03/11/19 12:18 Resp 16 03/11/19 12:18 BP 148/91 03/11/19 12:18 Pulse Ox 99 03/11/19 12:18 Vital Signs Reviewed: Yes Eye Exam: Normal ENT Exam: Normal Dental Exam: Normal Neck exam: Normal Respiratory Exam: Normal Cardiovascular Exam: Normal Musculoskeletal Exam: Normal Neurological Exam: Normal Psychological Exam: Normal Skin Exam: Normal Diagnostics - Radiology No standard instances Radiology Interpretation Completed By: Radiologist - Glueline Worker: Ollie Warren F, ([id number]) Assistant General Manager: PATRICIA (NUANCE) Report Date: 13:34:00 Report Status: Final Start of Report Content = Patient Name: ESTER PEREZ Medical Record#: [id number] Ordering Physician : Liana Arango RESEARCH ASSOCIATE [employer]LECULAR BIOLOGY Acct.#: [id number] : 1970 Age: 48 Sex: M Location: [facility] Exam Date: 03/11/191333 ADM Status: REG ER Order Information: NECK SOFT TISSUE Accession Number: [id number] CPT: 44951 INDICATION: Throat pain possible foreign body. COMPARISON: There are no relevant prior studies available for comparison. TECHNIQUE: AP and lateral images of the soft tissue of the neck were obtained. FINDINGS: The epiglottis and aryepiglottic folds appear to be within normal limits. The retropharyngeal soft tissues appear normal. No radiopaque foreign body is seen. The airway appears patent. There is moderate to severe degenerative disc disease at the C5- C6 and C6-C7 levels. IMPRESSION: NO RADIOPAQUE FOREIGN BODY IS SEEN. <Electronically signed by Ollie Warren MD in OV> 03/11/19 1355 Dictated By: Ollie Warren MD Dictated Date/Time: 03/11/191353 Transcribed Date/Time: 03/11/191353 Copy to: CC:Liana Arango NP; Jane Hung MD; Kenyon Vazquez DO Imaging - [facility] Imaging - [facility] Imaging - [facility] [address] [place], [place] [id number] [place] [id number] [place] [address] ph ([phone]) ph ([phone]) ph ([phone]) ===== End of Report Content Throat Pain/Nasal Course/Dx - Differential Dx/Diagnosis Differential Diagnosis/HQI/PQRI: Pharyngitis, Tonsillitis Provider Diagnosis: Throat pain in adult Discharge ED - Sign-Out/Discharge Documenting (check all that apply): Patient Departure All imaging exams completed and their final reports reviewed: Yes - Discharge Plan Condition: Stable Disposition: HOME Prescriptions: Amoxicillin PO (*) [Amoxicillin 500 MG CAP*] 500 mg PO Q12H #20 cap Patient Education Materials: Pharyngitis (ED) Referrals: Mode Baires MD [Medical Doctor] - If Needed Kenyon Vazquez DO [Primary Care Provider] - If Needed Additional Instructions: Please follow up with your PCP and an ENT specialist if needed. If your symptoms do not improve or they worsen, please seek care at the closest emergency room. - Billing Disposition and Condition Condition: STABLE Disposition: Home
== END 2019-03-11 14:10 | disposition home or self-care (01) ==
LOC: UCCORT 11:25
DX: R07.0 Pain in throat (principal); S22.42XA Multiple fractures of ribs, left side, initial encounter for closed fracture; Z87.891 Personal history of nicotine dependence; X58.XXXA Exposure to other specified factors, initial encounter; Y92.9 Unspecified place or not applicable
CPT/HCPCS: 70360; 87651; 99212; G0463